=== PATIENT | male | born 2005 | race Two or more races ===

== ENCOUNTER 2024-04-06 14:19 | Emergency (ER) | payer OTHER ==
[~2024-04-06] VITALS: Ht 180.3 cm; Wt 76.8 kg
[2024-04-06 15:30] LABS: HEMATOCRIT 40.7 % (42.0-52.0); HEMOGLOBIN 13.9 g/dl (13.5-17.5); MEAN CORPUSCULAR HEMOGLOBIN 29.8 pg (27.0-33.0); MEAN CORPUSCULAR HGB CONC 34.2 g/dl (32.0-36.5); MEAN CORPUSCULAR VOLUME 87.3 fl (80.0-96.0); PLATELET COUNT, AUTOMATED 368 10^3/uL (150-450); RED BLOOD COUNT 4.66 10^6/uL (4.30-6.10)
[2024-04-06 15:55] LABS: AMPHETAMINES LEVEL URINE NEGATIVE (NEGATIVE); BARBITURATES URINE NEGATIVE (NEGATIVE); BENZODIAZEPINES URINE NEGATIVE (NEGATIVE); CANNABINOIDS URINE NEGATIVE (NEGATIVE); COCAINE METABOLITE URINE NEGATIVE (NEGATIVE); METHADONE URINE NEGATIVE (NEGATIVE); OPIATES URINE NEGATIVE (NEGATIVE); PHENCYCLIDINE URINE NEGATIVE (NEGATIVE)
[2024-04-06 15:57] LABS: ETHYL ALCOHOL (ETHANOL) 0.006 % (0.000-0.010)
[2024-04-06 15:59] LABS: ALKALINE PHOSPHATASE 109 U/L (46-116); ALT/SGPT 33 U/L (7.0-40); AST/SGOT 18 U/L (<34); BILIRUBIN,DIRECT < 0.1 MG/DL (<0.4); BILIRUBIN,TOTAL 0.2 MG/DL (0.3-1.2); BLOOD UREA NITROGEN 23 MG/DL (9-23); CALCIUM LEVEL 9.6 MG/DL (8.5-10.1); CARBON DIOXIDE LEVEL 27 MMOL/L (20-31); CHLORIDE LEVEL 104 MMOL/L (98-107); GLOMERULAR FILTRATION RATE > 60.0 (>60); GLUCOSE, FASTING 89 MG/DL (60-100); POTASSIUM SERUM 4.4 MMOL/L (3.5-5.1); SALICYLATE LEVEL < 3.0 MG/DL (<30); SODIUM LEVEL 136 MMOL/L (136-145); TOTAL PROTEIN 7.4 G/DL (5.7-8.2)
[2024-04-06 16:01] LABS: THYROID STIMULATING HORMONE 0.596 uIU/ML (0.55-4.78)
[2024-04-06] MEDS ORDERED: HOME MED LIST COMPLETE! XX SCH (18:30)
[2024-04-08 21:20] VITALS: BP 133/61; TEMP 97.8; O2SAT 99
== END 2024-04-08 21:27 ==
LOC: EDBD 14:19 → M ED 14:19
DX: R45.850 Homicidal ideations (principal); R45.851 Suicidal ideations; R94.31 Abnormal electrocardiogram [ECG] [EKG]

== ENCOUNTER 2024-06-26 08:47 | Emergency (ER) | payer OTHER ==
[~2024-06-26] VITALS: Ht 180.3 cm; Wt 86.0 kg
[2024-06-26] MEDS ORDERED: AMOX875T2 PO (11:16)
[2024-06-26 11:27] VITALS: BP 126/75; TEMP 98.3; O2SAT 99
== END 2024-06-26 11:28 | disposition home or self-care (01) ==
LOC: M ED 08:47
DX: L05.01 Pilonidal cyst with abscess (principal); F32.A Depression, unspecified; Z79.2 Long term (current) use of antibiotics